=== PATIENT | female | born 1955 | race Caucasian/White ===

== ENCOUNTER 2017-03-12 16:54 | Inpatient (IN) | payer MEDICARE ==
--- NOTE | 2017-03-12 17:56 | ER Document Report ---
ED Medical Screen (RME) - General Chief Complaint: Shortness Of Breath Stated Complaint: DIFFICULTY BREATHING Time Seen by Provider: 03/12/17 17:19 Mode of Arrival: Ambulatory Information source: Patient TRAVEL OUTSIDE OF THE [place] IN LAST 30 DAYS: No - HPI Patient complains to provider of: Chest pain, shortness of breath Onset: Last week Notes: 03/12/17 17:54 Patient is a 61-year-old female with a history of lupus, as well as asthma, who presents to the emergency room for complaints of one-week history of chest heaviness with shortness of breath that has been worsening, she has been seen by her primary care provider and provided with breathing treatments, with no improvement of symptoms, she does her recently suddenly a few weeks ago - Related Data Allergies/Adverse Reactions: No Known Allergies Allergy (Unverified 03/12/17 17:11) Past Medical History Renal/ Medical History: Denies: Hx Peritoneal Dialysis Surgical Hx: Negative - Immunizations Hx Diphtheria, Pertussis, Tetanus Vaccination: Yes Physical Exam - Vital signs Vitals: Temp Pulse Resp BP Pulse Ox 98.0 F 106 H 22 H 145/99 H 98 03/12/17 17:11 03/12/17 17:11 03/12/17 17:11 03/12/17 17:11 03/12/17 17:11 Course - Vital Signs Vital signs: Temp Pulse Resp BP Pulse Ox 98.0 F 106 H 22 H 145/99 H 98 03/12/17 17:11 03/12/17 17:11 03/12/17 17:11 03/12/17 17:11 03/12/17 17:11
[2017-03-12] MEDS ORDERED: ONDANSETRON 4 MG TAB.RAPDIS SL ONE (18:00)
[2017-03-12] MEDS ORDERED: ASPIRIN 81 MG TABLET, CHEWABLE PO ONE (18:00)
[2017-03-12 18:34] LABS: HEMATOCRIT 37.8 % (36.0-47.0); HEMOGLOBIN 12.7 g/dL (12.0-15.5); HGB HCT DIFFERENCE 0.3; MEAN CORPUSCULAR HEMOGLOBIN 30.5 pg (27.0-33.4); MEAN CORPUSCULAR HGB CONC 33.7 g/dL (32.0-36.0); MEAN CORPUSCULAR VOLUME 91 fl (80-97); RED BLOOD COUNT 4.18 10^6/uL (3.72-5.28); RED CELL DISTRIBUTION WIDTH 12.9 % (11.5-14.0); WHITE BLOOD COUNT 21.3 10^3/uL (4.0-10.5)
[2017-03-12 18:45] LABS: APPEARANCE,URINE SLIGHTLY-CLOUDY; BILIRUBIN,URINE NEGATIVE (NEGATIVE); GLUCOSE, URINE NEGATIVE (NEGATIVE); KETONES,URINE TRACE mg/dL (NEGATIVE); LEUKOCYTE ESTERASE,URINE NEGATIVE (NEGATIVE); NITRITE,URINE NEGATIVE (NEGATIVE); PROTEIN,URINE NEGATIVE (NEGATIVE); URINE SPECIFIC GRAVITY 1.025; UROBILINOGEN,URINE NEGATIVE mg/dL (<2.0)
--- NOTE | 2017-03-12 18:47 | RADIOLOGY REPORT (SQ) ---
EXAM DESCRIPTION: CHEST PA/LAT COMPLETED DATE/TIME: 03/12/2017 6:36 pm REASON FOR STUDY: cp COMPARISON: 08/22/2012 EXAM PARAMETERS: NUMBER OF VIEWS: two views TECHNIQUE: Digital Frontal and Lateral radiographic views of the chest acquired. RADIATION DOSE: NA LIMITATIONS: none FINDINGS: LUNGS AND PLEURA: No opacities, masses or pneumothorax. No pleural effusion. MEDIASTINUM AND HILAR STRUCTURES: No masses or contour abnormalities. HEART AND VASCULAR STRUCTURES: Heart normal size. No evidence for failure. BONES: No acute findings. HARDWARE: None in the chest. OTHER: No other significant finding. IMPRESSION: NO SIGNIFICANT RADIOGRAPHIC FINDING IN THE CHEST. TECHNICAL DOCUMENTATION: JOB ID: [id number] [employer]- All Rights Reserved
[2017-03-12 18:54] LABS: ALANINE AMINOTRANSFERASE 22 U/L (9-52); ALBUMIN 4.3 g/dL (3.5-5.0); ALKALINE PHOSPHATASE 65 U/L (38-126); ANION GAP 12 (5-19); ASPARTATE AMINO TRANSFERASE 17 U/L (14-36); BILIRUBIN,DIRECT 0.2 mg/dL (0.0-0.4); BILIRUBIN,TOTAL 0.4 mg/dL (0.2-1.3); BLOOD UREA NITROGEN 17 mg/dL (7-20); CALCIUM 9.6 mg/dL (8.4-10.2); CARBON DIOXIDE 24 mmol/L (22-30); CHLORIDE 101 mmol/L (98-107); CREATINE KINASE 60 U/L (30-135); CREATININE RESULT 0.71 mg/dL (0.52-1.25); GLUCOSE 98 mg/dL (75-110); POTASSIUM 4.6 mmol/L (3.6-5.0); TOTAL PROTEIN 7.3 g/dL (6.3-8.2)
[2017-03-12 19:00] LABS: BAND NEUTROPHILS % (MANUAL) 1 % (3-5); BASOPHILS % (MANUAL) 0 % (0-2); EOSINOPHILS % (MANUAL) 0 % (0-6); LYMPHOCYTES % (MANUAL) 2 % (13-45); TOTAL CELLS COUNTED 100
[2017-03-12 19:01] LABS: HYPOCHROMASIA SLIGHT; PLATELET CLUMPS PRESENT
[2017-03-12] MEDS ORDERED: ALBUTEROL SULFATE 0.083% NEB 2.5 MG/3 ML AMPUL NEB ONE ×2 (20:01→23:39)
--- NOTE | 2017-03-12 22:03 | ER Document Report ---
ED Respiratory Problem - General Mode of Arrival: Ambulatory TRAVEL OUTSIDE OF THE [place] IN LAST 30 DAYS: No - HPI Patient complains to provider of: Short of breath Onset: Other - Refer to HPI Notes <FUENTES FATIMA - Last Filed: 03/12/17 22:09> <AAKASH SEYMOUR - Last Filed: 03/12/17 23:47> <RONA ARANA - Last Filed: 03/13/17 01:43> - General Chief Complaint: Shortness Of Breath Stated Complaint: DIFFICULTY BREATHING Time Seen by Provider: 03/12/17 17:19 Notes: Patient is a 61 year old female presenting to the ED for shortness of breath and chest heaviness x1 week. Patient states she has been seen by her primary care physician for such and has been given breathing treatments with no much improvement. Patient states that she has been scared because she cannot catch her breath. Patient also complains of cough and a hoarse voice. Patient denies any nausea. Patient was given some Xanax which helped her sleep last night but she does not usually take any medications like that. Patient states that she was given Ventolin instead of Proventyl inhalers due to an insurance problem. Patinet states this is when her symptoms got worse and she did not realize that these inhalers are actually the same drug. Patient did loose her recently and has been stressed. Patient has a history of asthma, systemic lupus , multiple knee replacement and a hysterectomy. (FUENTES FATIMA) - Related Data Allergies/Adverse Reactions: No Known Allergies Allergy (Unverified 03/12/17 17:11) Past Medical History - General Information source: Patient - Social History Smoking Status: Former Smoker Cigarette use (# per day): No Chew tobacco use (# tins/day): No Smoking Education Provided: No Frequency of alcohol use: None Drug Abuse: None Family History: None Patient has suicidal ideation: No Patient has homicidal ideation: No Pulmonary Medical History: Reports: Hx Asthma Endocrine Medical History: Reports: Other - lupus Surgical Hx: Negative - Immunizations Hx Diphtheria, Pertussis, Tetanus Vaccination: Yes <FUENTES FATIMA - Last Filed: 03/12/17 22:09> Review of Systems - Review of Systems Constitutional: No symptoms reported EENT: No symptoms reported Cardiovascular: See HPI, Chest pain Respiratory: See HPI, Cough, Short of breath Gastrointestinal: No symptoms reported Genitourinary: No symptoms reported Female Genitourinary: No symptoms reported Musculoskeletal: No symptoms reported Skin: No symptoms reported Hematologic/Lymphatic: No symptoms reported Neurological/Psychological: See HPI, Anxiety -: Yes All other systems reviewed and negative <FUENTES FATIMA - Last Filed: 03/12/17 22:09> Physical Exam - Vital signs Interpretation: Hypertensive, Tachypneic <FUENTES FATIMA - Last Filed: 03/12/17 22:09> <AAKASH SEYMOUR - Last Filed: 03/12/17 23:47> <RONA ARANA - Last Filed: 03/13/17 01:43> - Vital signs Vitals: Temp Pulse Resp BP Pulse Ox 98.0 F 106 H 22 H 145/99 H 98 03/12/17 17:11 03/12/17 17:11 03/12/17 17:11 03/12/17 17:11 03/12/17 17:11 - Notes Notes: GENERAL: Alert, interacts well, pleasant. No acute distress. HEAD: Normocephalic, atraumatic. EYES: Appear normal. Pupils equal, round, and reactive to light. ENT: Dry mucus membranes, tongue midline. Nasal cannula in place. Slight erythema to the soft palate area of the oropharynx. NECK: Full range of motion. Supple. Trachea midline. LUNGS: Slightly tachypneic. Clear to auscultation bilaterally, no wheezes, rales , or rhonchi. No respiratory distress. HEART: Regular rate and rhythm. No murmurs, gallops, or rubs. ABDOMEN: Soft, non-tender. Non-distended. Normal bowel sounds. EXTREMITIES: Moves all 4 extremities spontaneously. Normal strength. No edema. NEUROLOGICAL: Alert and oriented x3. Normal speech with hoarse voice. No focal neurological deficits. GSC 15. PSYCH: Anxious. SKIN: Warm, dry, normal turgor. No rashes or lesions noted. (FUENTES FATIMA) Course - Laboratory Result Diagrams: 03/12/17 18:02 03/12/17 18:02 <FUENTES FATIMA - Last Filed: 03/12/17 22:09> - Laboratory Result Diagrams: 03/12/17 18:02 03/12/17 18:02 - Diagnostic Test Radiology reviewed: Image reviewed, Reports reviewed - Chest x-ray is unremarkable <LIONAAKASH - Last Filed: 03/12/17 23:47> - Laboratory Result Diagrams: 03/12/17 18:02 03/12/17 18:02 <RONA ARANA - Last Filed: 03/13/17 01:43> - Re-evaluation Re-evalutation: 03/12/17 23:19 The patient was given Ativan 0.5 mg IV 30 minutes ago. The oxygen was turned off about 5 minutes ago. The patient is sleeping soundly, her pulse ox ranges between 91 and 95% on room air while she is asleep. Her pulse ox was 95% on room air when she first presented breathing rapidly at triage. 03/12/17 23:27 The patient was awakened recheck, she states that she is breathing much better and feels better after getting some rest. At this time she does have a frequent , nonproductive congested cough, probably due to accumulation of mucus while she was resting so peacefully. 03/12/17 23:47 The patient reports that she is on chronic pain management taking oxycodone 4 times daily. (AAKASH SEYMOUR) 03/13/17 01:41 Patient was seen by Dr. Adrian and he had her for discharge. The nurse went to discharge the patient and the patient did not look well and O2 saturation was 82 to 84% room air. I therefore reevaluate patient. She has rhonchorous breath sounds. She has some tachypnea. Her heart rate is in the 120s. With 2 L of oxygen she is at 90%. I increased her oxygen to 3 L. She is now 94%. I have ordered her magnesium IV. She is a received Solu-Medrol. She does have a leukocytosis of 21,000. Patient denies history of chronic steroid use despite history of lupus. Her d-dimer is negative. She does have a history of asthma. She does agree to admission. I did speak with Dr. Gaines who agrees to admit the patient. We will place her on antibiotics due to the high white blood cell count. She will be admitted due to worsening hypoxemia and tachycardia the presence of wheezing and rhonchorous breath sounds. Dictation of this chart was performed using voice recognition software; therefore, there may be some unintended grammatical errors. (RONA ARANA) - Vital Signs Vital signs: Temp Pulse Resp BP Pulse Ox 98.0 F 82 27 H 135/75 H 89 L 03/12/17 17:11 03/12/17 21:32 03/13/17 00:31 03/13/17 00:31 03/13/17 00:31 - Laboratory Laboratory results interpreted by me: 03/12/17 03/12/17 18:02 18:02 WBC 21.3 H Seg Neuts % (Manual) 93 H Band Neutrophils % 1 L Lymphocytes % (Manual) 2 L Abs Neuts (Manual) 20.0 H Urine Ketones TRACE H Discharge <FUENTES FATIMA - Last Filed: 03/12/17 22:09> <AAKASH SEYMOUR - Last Filed: 03/12/17 23:47> - Discharge Unit Admitted: [facility] <RONA ARANA - Last Filed: 03/13/17 01:43> - Discharge Clinical Impression: Laryngitis, Anxiety as acute reaction to exceptional stress Asthmatic bronchitis Qualifiers: Asthma severity: unspecified severity Asthma complication type: with acute exacerbation Qualified Code(s): J45.901 - Unspecified asthma with (acute) exacerbation Upper respiratory tract infection Qualifiers: URI type: unspecified URI Qualified Code(s): J06.9 - Acute upper respiratory infection, unspecified Condition: Stable Disposition: ADMITTED INPATIENT Additional Instructions: Laryngitis: You have laryngitis. This is an inflammation of the vocal cords which leads to inability to speak normally. Any irritation to the airway can cause laryngitis. Causes include virus infection, smoke inhalation, allergy, or even trauma due to excessive talking or shouting. Rest your voice. Any vibration of the vocal cords increases and prolongs the swelling. Humidity is helpful, especially cool mist. Avoid dust, chemical fumes, and smoke. Avoid decongestants and antihistamines -- these will make you worse. You can expect to recover completely in a few days. See the physician if new symptoms develop, such as high fever, productive cough, shortness of breath, or if you do not improve within a few days. Bronchitis with Bronchospasm (Wheezing): You have bronchitis with bronchospasm (wheezing). Sometimes people develop wheezing with a chest cold. This occurs either because of an underlying tendency toward asthma or because the virus itself irritates the bronchial tubes. This irritation causes cough, shortness of breath, and wheezing. Emergency treatment of bronchospasm may include adrenaline shots or bronchodilator aerosol. You may feel lightheaded and have a rapid pulse for an hour or two. Rest and get plenty of fluids. At home, we'll treat you with a bronchodilator inhaler. Corticosteroids may be required for some patients. Until you recover, avoid chemical fumes, dusts, pollens, and exercising in very cold or dry air. If you smoke, stop now! Most cases of bronchitis get better without antibiotics. We prescribe antibiotics when we believe bacteria are damaging your airways, or if there's high risk the bronchitis will worsen into pneumonia. Increase your fluid intake. A cool mist humidifier may make your lungs more comfortable. An expectorant (cough medicine that loosens phlegm) can help. Repeated episodes of bronchitis and bronchospasm may result in lung damage -- for example, chronic bronchitis, recurrent pneumonias, or emphysema. If you develop a fever, increased wheezing, chest pain, or severe shortness of breath, you should contact the doctor immediately. Anxiety: The physician feels that some of your health problems are being caused by anxiety. Anxiety affects your health in many ways. Anxiety alone can cause palpitations, sweats, chest pains, abdominal pains, shortness of breath, and headaches. It contributes to ulcer disease, high blood pressure, irritable bowel syndrome, and has been shown to cause flare-ups of many other diseases. Anxiety is not a simple disorder to treat. If the anxiety is due to recent life stresses, you may simply need time to "work through" the changes. If the anxiety is due to an underlying unhappiness with yourself or due to psychiatric disturbance, professional help will be needed. Your physician can refer you for further help if needed. Anti-anxiety medication is occasionally given if the stress is acute or if you are having trouble sleeping. Chronic or frequent use of these medications is not a good idea because the body becomes reliant on it, preventing you from dealing with life's normal stresses. TAKE THE PREDNISONE PRESCRIBED. DRINK PLENTY OF FLUIDS. REST. TRY ROBITUSSIN-DM FOR COUGH CONTROL. FOLLOW UP WITH YOUR DOCTOR IF NOT IMPROVING. RETURN TO THE EMERGENCY ROOM IF ANY NEW OR WORSENING SYMPTOMS. Prescriptions: Prednisone [Deltasone 10 mg Tablet] 10 mg PO ASDIR PRN #21 tablet PRN Reason: Scribe Attestation: 03/12/17 22:39 I personally performed the services described in the documentation, reviewed and edited the documentation which was dictated to the scribe in my presence, and it accurately records my words and actions. (AAKASH SEYMOUR) Scribe Documentation - Scribe Written by Lauri:: Lauri Kim 03/12/2017 22:03 acting as scribe for :: Lion <FUENTES FATIMA - Last Filed: 03/12/17 22:09>
[2017-03-12] MEDS ORDERED: METHYLPREDNISOLONE INJ 125 MG/2 ML SDV IV ONE (22:09)
[2017-03-12] MEDS ORDERED: LORAZEPAM INJ 2 MG/1 ML VIAL IV ONE (22:10)
[2017-03-12] MEDS ORDERED: NORMAL SALINE 1000 ML 1,000 ML IV ONE (22:13)
[2017-03-12] MEDS ORDERED: HYDROCODONE/ACETAMINOPHEN 5-325 MG 6 TAB/DSPK PO PRN (23:30)
[2017-03-12] MEDS ORDERED: PREDNISONE 20 MG TABLET PO ONE (23:30)
[2017-03-12] MEDS ORDERED: HYDROCODONE/ACETAMINOPHEN 5-325 MG TABLET PO ONE (23:36)
[2017-03-12] MEDS ORDERED: LIDOCAINE 1% INJ-PF (10 MG/ML) 30 ML SDV NEB ONE (23:39)
[2017-03-13] MEDS: MAGNESIUM SULFATE/D5W 100 ML IV SCH ×2 (01:05→01:58)
[2017-03-13] MEDS ORDERED: CEFTRIAXONE INJ 1000 MG VIAL IV ONE (01:40)
[2017-03-13] MEDS ORDERED: AZITHROMYCIN INJ 500 MG VIAL IV ONE (01:41)
[2017-03-13] MEDS ORDERED: CEFEPIME 2 GM/D5W RTU 50 ML IV SCH (02:15)
[2017-03-13] MEDS ORDERED: CEFEPIME 2 GM/D5W RTU 2 GM/50 ML RTUPB IV ONE ×2 (02:30→11:00)
[2017-03-13 02:32] LABS: ARTERIAL BLOOD BASE EXCESS -2.8 mmol/L; ARTERIAL BLOOD O2 SATURATION 91.9 % (94-98)
[2017-03-13] MEDS ORDERED: NORMAL SALINE 1000 ML 1,000 ML IV PRN (02:48)
[2017-03-13] MEDS ORDERED: INSULIN LISPRO 100 UNIT/ML 3 ML VIAL SUBCUT PRN (02:49)
[2017-03-13] MEDS ORDERED: DEXTROSE 40% GEL 15 GM TUBE PO PRN ×2 (02:49)
[2017-03-13] MEDS ORDERED: GLUCAGON,HUMAN RECOMB 1 MG INJ IM PRN (02:49)
[2017-03-13] MEDS ORDERED: DEXTROSE 50%-WATER 25 GM/50 ML DISP.SYRIN IV PRN ×2 (02:49)
[2017-03-13] MEDS ORDERED: ALBUTEROL SULFATE 0.083% NEB 2.5 MG/3 ML AMPUL NEB PRN (03:17)
[2017-03-13] MEDS ORDERED: ACETAMINOPHEN 325 MG TABLET PO PRN (03:17)
[2017-03-13] MEDS ORDERED: GUAIFENESIN SYRP 200 MG/10 ML UDC PO PRN (03:17)
[2017-03-13 03:32] LABS: ADD ON TESTING BLD IN LAB ACKNOWLEDGE
[2017-03-13 03:43] LABS: MAGNESIUM 2.6 mg/dL (1.6-2.3)
[2017-03-13] MEDS ORDERED: PROMETHAZINE HCL 25 MG TABLET PO PRN (03:45)
[2017-03-13] MEDS: NORMAL SALINE 1000 ML 1,000 ML IV PRN ×2 (04:10→16:38)
--- NOTE | 2017-03-13 04:11 | PDOC H&P ---
History of Present Illness Admission Date/PCP: 03/13/17 02:01 Primary care provider uncertain Patient complains of: Difficulty breathing History of Present Illness: DAJA DIETRICH is a 61 year old female with underlying asthma, systemic lupus, not on medication for same, prominent reflux, mild anxiety and depression without suicidal or homicidal ideation, history of nephrolithiasis, and history of myocardial infarction, who presents to the emergency room for evaluation of a one-week history of slowly progressive shortness of breath and occasional chest heaviness when her shortness of breath is at its worst. Patient has been discussed with emergency room physician who evaluated the patient. He had accepted the patient from the previous emergency room doctor. Tentative plans were to send the patient home, but when the time for evaluation arrived, O2 saturations were in the low 80 percentile on room air and patient was noted to have rhonchorous breath sounds and to be in some respiratory distress. She had questionable chills but no fever. No nausea vomiting, diarrhea or dysuria, or abdominal pain. Has never been intubated for respiratory difficulty. This is her first hospitalization for asthma exacerbation since childhood. Her first ER visit for asthma problems in quite some time. No underlying COPD or sleep apnea. Was treated with a course of Cipro 2 weeks ago for urinary tract infection. Dictation via voice recognition software. Laboratory results are listed in [facility] and are reviewed. X-ray summary results are listed below, with full report(s) reviewed. . Social history/personal habits: ; recently . Lives alone. 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 No tobacco use since 2001. No alcohol or illicit drug use. No known drug allergies. Home medications initially autopopulated into [facility] may not accurately reflect patient's true medications, dosages, and/or frequencies. psychiatric technician to reconcile medications. Unfortunately, patient not certain of all medications/dosages/frequencies. REVIEW OF SYSTEMS: Constitutional: See history and present illness. Eyes: Wears glasses ENT: No swallowing problems or complaints. Denies hearing loss. Pulmonary: See history and present illness. Cardiovascular: See history and present illness. Gastrointestinal: No current complaints, including nausea or vomiting. Skin: No current complaints, including rashes. Hematologic: Denies easy bruising. Neurologic: No current complaints, including numbness or tingling. Musculoskeletal: Joint pain from her lupus. Psychiatric: Mild anxiety and depression. Denies suicidal or homicidal ideation. Endocrine: No current complaints, including polyuria. Genitourinary: No current complaints, including dysuria. PHYSICAL EXAMINATION: 5 feet 6 inches tall. 67.4 kg. BMI 24 kg/m. Blood pressure 137/78. Pulse 117 and regular. 93% saturation on 2 L oxygen per nasal cannula. Respirations are 25 and unlabored. Temperature 98.0. Well-nourished well-developed female appearing approximately her stated age. Pleasant awake alert and cooperative. Appears not to feel very well, and somewhat fatigued. Female emergency room nurse David is present. Skin is warm and dry. No grossly obvious evidence of rash in areas of skin examined. No subcutaneous nodules palpated. ENT: Hearing grossly normal to normal conversation. Tongue midline on protrusion pink and slightly tacky. Eyes: No scleral icterus. Pupils equal and reactive to light at 4 mm. Ricardo conjunctivae. Neck is supple and nontender to gentle active range of motion and palpation. Midline trachea. No palpable thyroid nodule mass enlargement or tenderness. Lymphatic: No palpable cervical or clavicular nodes. Neck and lymphatic exams limited by patient body habitus. Psychiatric: Reasonable insight into acute and chronic medical issues. Oriented to time location and why here. Lungs: Auscultation reveals equal breath sounds bilaterally. No use of accessory respiratory muscles. Faintly coarse breath sounds bilaterally, with mild brief expiratory wheezing Cardiovascular: Heart regular rate and rhythm, without gallop murmur or rub. No carotid or abdominal aortic bruits. No ankle or pedal edema. Faintly palpable dorsalis pedis pulses. Abdomen:soft slightly distended nontender with positive bowel sounds. Unable to adequately evaluate abdomen for masses or organomegaly due to distention. Extremities: Feet are warm and dry. No calf tenderness to compression. No grossly obvious visual evidence of calf swelling. Gentle manipulation of lower extremities fails to reveal any obvious evidence of injury or instability to knees hips or ankles. Neurologic: Moves upper extremities grossly normally. Patellar reflexes absent. Absent Babinski. Light touch is intact at feet. Dorsiflexion and plantarflexion of feet 5 / 5 and symmetric. Past Medical History Cardiac Medical History: Reports: Coronary Artery Disease, Myocardial Infarction , Hypertension Denies: Atrial Fibrillation, Congestive Heart Failure, DVT, Hyperlipidema, Pulmonary Embolism Pulmonary Medical History: Reports: Asthma Denies: Chronic Obstructive Pulmonary Disease (COPD), Sleep Apnea EENT Medical History: Reports: Eyes - Glasses Denies: Ears, Throat Neurological Medical History: Denies: Hemorrhagic CVA, Ischemic CVA, Seizures Endocrine Medical History: Denies: Diabetes Mellitus Type 1, Diabetes Mellitus Type 2, Hyperthyroidism, Hypothyroidism GI Medical History: Reports: Gastroesophageal Reflux Disease Denies: Cirrhosis, Hepatitis, Peptic Ulcer Disease Musculoskeltal Medical History: Reports: Other - Systemic lupus Skin Medical History: Reports: None Psychiatric Medical History: Reports: Depression, General Anxiety Disorder Denies: Alcohol Dependency, Substance Abuse, Tobacco Dependency Hematology: Reports: Anemia, Other - Easy bruising Infectious Medical History: Denies: Hepatitis B, Hepatitis C Past Surgical History Past Surgical History: Reports: Appendectomy, Hysterectomy, Orthopedic Surgery - Knee surgery 5., Other - Breast reconstruction after lumpectomy for benign disease Social History Information Source: Patient, Emergency Med Personnel, [facility] Records Lives with: Alone Smoking Status: Former Smoker Frequency of Alcohol Use: None Drugs: None - Advance Directive Resuscitation Status: Full Code Surrogate healthcare decision maker:: Her niece Gina Dietrich Family History Family History: None Parental Family History Reviewed: Yes - Father of complications of diabetes. Mother alive, uncertain health Children Family History Reviewed: Yes - Son with back problems. Sibling(s) Family History Reviewed.: Yes - Healthy Medication/Allergy Home Medications: Alprazolam [Xanax 0.5 mg Tablet] 0.5 mg PO TIDP PRN 03/13/17 Ammonium Lactate [Lac-Hydrin 12% Lotion 225Gm/Bottle] 1 applic TP QHS 03/13/17 Diazepam [Valium 5 mg Tablet] 2.5 mg PO HSP PRN 03/13/17 Fluticasone Propionate [Flovent Hfa 110 Mcg Inhalation Aerosol 12 gm] 1 puff IH Q12 03/13/17 Metoprolol Succinate [Toprol Xl 50 mg Tab.sr] 50 mg PO DAILY 03/13/17 Pantoprazole Sodium [Protonix] 40 mg PO BIDBS 03/13/17 Benzonatate [Tessalon Perles 100 mg Capsule] 100 mg PO Q8HP PRN #10 capsule 08/30 Doxycycline Hyclate 100 mg PO BID #10 capsule 03/14/17 Montelukast Sodium [Singulair 10 mg Tablet] 10 mg PO QHS #30 tablet 08/01/17 Prednisone [Deltasone 10 mg Tablet] 10 mg PO ASDIR PRN #21 tablet 03/14/17 Allergies/Adverse Reactions: No Known Allergies Allergy (Unverified 03/12/17 17:11) Physical Exam Vital Signs: Temp Pulse Resp BP Pulse Ox 98.0 F 82 27 H 135/75 H 89 L 03/12/17 17:11 03/12/17 21:32 03/13/17 00:31 03/13/17 00:31 03/13/17 00:31 Results Laboratory Results: 03/13/17 03/13/17 02:25 02:55 Carbonic Acid 1.04 L HCO3/H2CO3 Ratio 20:1 ABG pH 7.41 ABG pCO2 34.7 L ABG pO2 61.3 L ABG HCO3 21.3 ABG O2 Saturation 91.9 L ABG Base Excess -2.8 FiO2 3 LITERS Magnesium 2.6 H 03/13/17 02:55 Troponin I < 0.012 Impressions: Chest X-Ray 03/12/17 18:00 IMPRESSION: NO SIGNIFICANT RADIOGRAPHIC FINDING IN THE CHEST. Assessment & Plan - Diagnosis (1) Asthma exacerbation Is this a current diagnosis for this admission?: YesPlan: Patient will be admitted under asthma exacerbation protocol. Incentive spirometry twice a day. Scheduled DuoNeb's. As needed albuterol nebs. Solu-Medrol. Prevacid for gastritis prophylaxis With questionable chills, leukocytosis, and underlying systemic lupus, antibiotics will be added; cefepime and intravenous Zithromax.. I strongly encouraged patient to notify staff should patient feel that breathing is worsening. Patient is a full code. I have strongly encouraged patient not to get out of bed without notifying staff , to avoid a fall with injury. Knee high SCDs for DVT prophylaxis, along with subcutaneous Lovenox. Impression and plans were discussed with patient who concurs. Time spent in evaluation and management of patient: 71 minutes. (2) Leukocytosis Qualifiers: Leukocytosis type: unspecified Qualified Code(s): D72.829 - Elevated white blood cell count, unspecified Is this a current diagnosis for this admission?: Yes (3) SLE (systemic lupus erythematosus) Qualifiers: Systemic lupus erythematosus type: unspecified Systemic lupus erythematosus organ involvement: other Qualified Code(s): M32.19 - Other organ or system involvement in systemic lupus erythematosus Is this a current diagnosis for this admission?: YesPlan: No evidence of flare of same. (4) CAD (coronary artery disease) Qualifiers: Coronary Disease-Associated Artery/Lesion type: [place] artery [place] vs. transplanted heart: [place] heart Associated angina: without angina Qualified Code(s): I25.10 - Atherosclerotic heart disease of [place] coronary artery without angina pectoris Is this a current diagnosis for this admission?: YesPlan: No evidence of acute exacerbation of same. Serial troponins. Resume home medications as appropriate once these have been determined and reviewed. (5) HTN (hypertension) Qualifiers: Hypertension type: essential hypertension Qualified Code(s): I10 - Essential (primary) hypertension Is this a current diagnosis for this admission?: YesPlan: Resume home medications as appropriate once these have been determined and reviewed. - Time Time Spent: Greater than 70 Minutes Anticipated discharge: Home Within: within 72 hours - Inpatient Certification Based on my medical assessment, after consideration of the patient's comorbidities, presenting symptoms, or acuity I expect that the services needed warrant INPATIENT care.: Yes I certify that my determination is in accordance with my understanding of Medicare's requirements for reasonable and necessary INPATIENT services [42 CFR 412.3e].: Yes Medical Necessity: Need Close Monitoring Due to Risk of Patient Decompensation, Need For IV Fluids, Need For Continuous Telemetry Monitoring, Need for Nebulizer Therapy and Monitoring of Response, Need for IV Antibiotics, Risk of Complication if Not Cared For in Hospital Post Hospital Care: D/C or Transfer Summary
[2017-03-13] MEDS ORDERED: LANSOPRAZOLE 30 MG TAB.RAP.DR PO SCH (06:00)
[2017-03-13] MEDS: METHYLPREDNISOLONE INJ 40 MG/1 ML SDV IV SCH ×2 (06:44→14:11)
[2017-03-13 06:51] LABS: VENOUS BLOOD HCO3 21.1 mmol/L (20-32); VENOUS BLOOD PH 7.35 (7.30-7.42)
[2017-03-13 06:57] LABS: HEMATOCRIT 35.1 % (36.0-47.0); HGB HCT DIFFERENCE 0.9; MEAN CORPUSCULAR HGB CONC 34.2 g/dL (32.0-36.0); MEAN CORPUSCULAR VOLUME 91 fl (80-97); RED BLOOD COUNT 3.87 10^6/uL (3.72-5.28); WHITE BLOOD COUNT 18.9 10^3/uL (4.0-10.5)
[2017-03-13 07:08] LABS: ANION GAP 15 (5-19); BLOOD UREA NITROGEN 11 mg/dL (7-20); CARBON DIOXIDE 18 mmol/L (22-30); CHLORIDE 105 mmol/L (98-107); CREATININE RESULT 0.62 mg/dL (0.52-1.25); GLUCOSE 197 mg/dL (75-110); POTASSIUM 4.3 mmol/L (3.6-5.0); SODIUM 138.2 mmol/L (137-145)
[2017-03-13 07:31] LABS: BASOPHILS % (MANUAL) 0 % (0-2); EOSINOPHILS % (MANUAL) 0 % (0-6); LYMPHOCYTES % (MANUAL) 5 % (13-45); TOTAL CELLS COUNTED 100
[2017-03-13 07:32] LABS: ANISOCYTOSIS SLIGHT
[2017-03-13] MEDS: IPRATROPIUM/ALBUTEROL 0.5-2.5 MG/3 ML AMPUL NEB SCH ×3 (09:00→19:51)
--- NOTE | 2017-03-13 09:33 | Progress Note ---
Provider Note Provider Note: RAJNI FARNSWORTH Search Criteria: Last Name 'rajni' and First Name 'devonte' and = ' and Request Period = 09/14/16' to 03/13/17' - 1 out of 1 Recipients Selected. Fill Date Product, Str, Form Qty Days Pt ID Prescriber Written RX# N/R* Pharm MED+ ------ ---- --------- --- ------- ----- --------- ------ 02/24/2017 OXYCODONE-ACETAMINOPHEN 10-325 120.00 30 [id number] 2016 [id number] N [id number] 60.0 02/24/2017 ALPRAZOLAM 0.5 MG TABLET 90.00 30 [id number] 02/24/2017 [id number] N [id number] 00.0 01/28/2017 OXYCODONE-ACETAMINOPHEN 10-325 120.00 30 [id number] 2016 [id number] N [id number] 60.0 01/25/2017 DIAZEPAM 5 MG TABLET 30.00 30 [id number] 12/29/2016 [id number] N [id number] 00.0 12/29/2016 OXYCODONE-ACETAMINOPHEN 10-325 120.00 30 [id number] 2016 [id number] N [id number] 60.0 11/24/2016 OXYCODONE-ACETAMINOPHEN 10-325 120.00 30 [id number] 2016 [id number] N [id number] 60.0 11/24/2016 DIAZEPAM 5 MG TABLET 30.00 30 [id number] 11/24/2016 [id number] N [id number] 00.0 10/27/2016 OXYCODONE-ACETAMINOPHEN 10-325 120.00 30 [id number] 2016 [id number] N [id number] 60.0 09/29/2016 OXYCODONE-ACETAMINOPHEN 10-325 120.00 30 [id number] 2016 [id number] N [id number] 60.0 [id number] ALEN MEIER MD; [facility], [address] [place] [address] Pharmacies that dispensed prescriptions listed [id number] ANTHON[facility] LIMA; [address] [place] [address], Patients that match search criteria
[2017-03-13] MEDS ORDERED: ENOXAPARIN SODIUM INJ 40 MG/0.4 ML DISP.SYRIN SUBCUT SCH (10:00)
[2017-03-13] MEDS ORDERED: CEFEPIME 2 GM/D5W RTU 2 GM/50 ML RTUPB IV SCH (10:00)
--- NOTE | 2017-03-13 10:08 | PROGRESS NOTE E ---
Progress Note NAME: DAJA DIETRICH : 1955 AGE: 61Y DATE: 03/13/2017 ROOM: 329 SUBJECTIVE: The patient is currently sitting up in bed. The patient is quite frustrated in that she needs her own medications restarted. The patient denies any nausea, vomiting, diarrhea. No dizziness, chest pain. She admits to shortness of breath. The patient is having difficulty fully complete sentences at this time, but states that her breathing is a little better than when she came in. The patient has had no chest pain and does not voice any other concerns at this time. REVIEW OF SYSTEMS: Rest of review of systems negative. MEDICATIONS: Medications have been reviewed. OBJECTIVE: GENERAL: The patient is a 61-year-old female who is awake, alert, and oriented to person, place, time, and situation. She is verbal, conversational, ambulatory, does not appear to be in any acute distress. VITAL SIGNS: Temperature is 97.6, pulse 95, respirations 20, blood pressure is 122/69, oxygen saturation 96% on 2 L nasal cannula. SKIN: Warm and dry. No rash. Not diaphoretic. HEENT: Pupils equal, round, and reactive to light and accommodation. Conjunctiva is pink. No JVP. CARDIOVASCULAR SYSTEM: Heart is regular. There is no murmur or rub. CHEST: Expiratory wheezes are noted throughout both lung guerrero, symmetrical, unlabored. ABDOMEN: Soft, nontender, nondistended. BACK: No CVA tenderness or sacral edema. EXTREMITIES: No clubbing, cyanosis, edema. PSYCHIATRIC: Appropriate affect, pleasant mood. DIAGNOSTICS: Lab values are as follows: Hematology obtained on 03/13/2017: WBCs are 18.9, hemoglobin is 12.0, hematocrit is 35.1, platelet count is 359,000. Chemistry obtained on 03/13/2017: Sodium is 138, potassium 4.3, chloride is 105, carbon dioxide 18, BUN 11, creatinine is 0.62, glucose 197, calcium is 9.0. IMPRESSION AND PLAN: 1. ACUTE ASTHMA EXACERBATION. Will continue the patient's home inhalers once reconciled. Will continue steroids as well as nebulizers and follows. 2. ACUTE HYPOXEMIC RESPIRATORY FAILURE. The patient's tachypnea overall is improved. The patient is now oxygenating on 2 L and is tolerating this well. Will continue to follow. 3. OPIATE DEPENDENCY CONTINUOUS. Will continue the patient's home medications once reconcilable. 4. BENZODIAZEPINE DEPENDENCY, CONTINUOUS. There is such a risk of mortality associated with this and opiates. I discussed this with the patient as the patient does need to be weaned from this. 5. ESTROGEN USE AT AGE 61. This is also associated with risk. The patient would like to defer this to primary. 6. GASTROESOPHAGEAL REFLUX DISEASE. Will continue PPI therapy. 7. DVT PROPHYLAXIS. Will continue Lovenox. DISPOSITION: The patient is a FULL CODE. Pending patient's symptomatology and diagnostic findings, will re-evaluate in the a.m. Time spent on this followup including assessment, plan, physical examination, patient education, and review of previous records is 35 minutes. DICTATING PHYSICIAN: DIONE GANN NP [id number] PHY#: [id number] ID: [id number] JOB#: [id number] ACCT: [id number] cc: >
[2017-03-13] MEDS: CEFEPIME 2 GM/D5W RTU 2 GM/50 ML RTUPB IV SCH ×2 (10:42→21:28)
[2017-03-13] MEDS: GUAIFENESIN 600 MG TABLET.SA PO SCH ×2 (11:11→21:35)
[2017-03-13] MEDS ORDERED: DIAZEPAM 5 MG TABLET PO PRN (14:09)
[2017-03-13] MEDS ORDERED: OXYCODONE-ACETAMINOPHEN 5-325 MG TABLET PO PRN ×2 (14:09→14:59)
[2017-03-13] MEDS ORDERED: OXYCODONE HCL IR 5 MG TABLET PO PRN ×4 (14:23→14:59)
[2017-03-13] MEDS: LANSOPRAZOLE 30 MG TAB.RAP.DR PO SCH (16:41)
[2017-03-13] MEDS ORDERED: METOPROLOL SUCCINATE 50 MG TAB.SR.24H PO SCH (18:00)
[2017-03-13] MEDS: METHYLPREDNISOLONE INJ 125 MG/2 ML SDV IV SCH (21:51)
[2017-03-13] MEDS ORDERED: MONTELUKAST SODIUM 10 MG TABLET PO SCH (22:00)
[2017-03-13] MEDS ORDERED: AZITHROMYCIN 500 MG in DEXTROSE 5%-WATER 250 ML IV SCH (22:00)
[2017-03-13] MEDS ORDERED: FLUTICASONE PROPIONATE HFA 110 MCG/PUFF 12 GM MDI IH SCH (22:00)
[2017-03-14] MEDS: METHYLPREDNISOLONE INJ 125 MG/2 ML SDV IV SCH (05:41)
[2017-03-14] MEDS: LANSOPRAZOLE 30 MG TAB.RAP.DR PO SCH (07:59)
[2017-03-14] MEDS: IPRATROPIUM/ALBUTEROL 0.5-2.5 MG/3 ML AMPUL NEB SCH (08:02)
[2017-03-14] MEDS ORDERED: BENZONATATE 100 MG CAPSULE PO PRN (08:28)
[2017-03-14] MEDS ORDERED: ALPRAZOLAM 0.5 MG TABLET PO PRN (08:28)
--- NOTE | 2017-03-14 09:33 | DISCHARGE SUMMARY E ---
Discharge Summary NAME: DAJA DIETRICH : 1955 AGE: 61Y ADMITTED: 03/13/2017 DISCHARGED: 03/14/2017 CODE STATUS: FULL CODE. PRIMARY CARE PROVIDER: Dr. Juan Bowie. DISCHARGE DIAGNOSES: 1. Acute asthma exacerbation. 2. Acute hypoxemic respiratory failure. 3. Opiate dependency, continuous. 4. Benzodiazepines dependency, continuous. 5. Estrogen use at age 61. 6. Gastroesophageal reflux disease. DISCHARGE MEDICATIONS: 1. Prednisone 60 mg taper. 2. Singulair 10 mg p.o. every hour of sleep, 30 tablets with 0 refills. 3. Doxycycline 100 mg p.o. b.i.d., 10 capsules with 0 refills. 4. Tessalon Perles 100 mg p.o. q.8 h. p.r.n., 10 capsule with 0 refills. 5. Xanax 0.5 mg p.o. t.i.d. p.r.n. 6. Valium 2.5 mg p.o. every hour of sleep p.r.n. 7. Flovent HFA 1 puff inhalation q.12 h. 8. Toprol XL 50 mg p.o. daily. 9. Protonix 40 mg p.o. daily. DIET: As tolerated. ACTIVITY: As tolerated. PHYSICAL EXAMINATION: GENERAL: On examination, the patient is a well-developed, well-nourished 61-year-old female who is awake, alert and oriented to person, place, time and situation. She is verbal, conversational, anxious and does not appear to be in acute physical distress. VITAL SIGNS FOLLOWS: Temperature 98.0, pulse 86, respirations 18, blood pressure 149/79, oxygen saturation is 93% on room air. SKIN: Warm and dry. No rash, not diaphoretic. HEENT: Pupils are equal, round, and reactive to light and accommodation. Conjunctivae is pink. No JVP. CARDIOVASCULAR: Heart is regular. There is no murmur or rub. CHEST: Clear. Faint wheezes noted in upper lung guerrero, much improved in comparison to yesterday, symmetrical and unlabored. ABDOMEN: Soft. Nontender, nondistended. BACK: No CVA tenderness or sacral edema. EXTREMITIES: No clubbing, cyanosis or edema. PSYCHIATRIC: Appropriate affect. Pleasant mood. DIAGNOSTICS: Lab values are as follows: Hematology obtained on 03/13/2017: WBCs 18.9, hemoglobin 12.0, hematocrit 35.1, and platelet count is 359,000. Coagulation obtained on 03/12/2017: D-dimer is 0.34. Venous blood gas obtained on 03/13/2017: pH is 7.35, PCO2 is 39.0, bicarb is 21. Chemistry obtained on 03/13/2017: Sodium is 138, potassium 4.3, chloride 105, carbon dioxide 18, BUN 11, creatinine 0.62, glucose 107, calcium 9.0, magnesium 2.6, bilirubin is 0.4, AST 17, ALT 22, alkaline phosphatase 65, CK 60, CK-MB 1.55, troponin 0.012, total protein 7.3, albumin 4.3. Urinalysis obtained on 03/13/2017: Color yellow, appearance slightly cloudy, pH 5.0, specific gravity is 1.025, protein negative, glucose negative, ketones trace, occult blood negative, nitrite negative, bilirubin negative, urobilinogen negative, leukocyte esterase is negative, WBC 1, RBC 2, bacteria trace, epithelial squamous cells 2, mucus rare, ascorbic acid is negative. Microbiology: Blood culture obtained on 03/13/2017 revealed no growth. Sputum culture obtained on 03/13/2017 reveals no growth. Chest x-ray obtained on 03/12/2017 revealed no significant radiographic finding of the chest. HISTORY OF PRESENT ILLNESS: The patient is a 61-year-old female with a past medical history that is remarkable for asthma and benzodiazepine dependency with concurrent opiate dependency. The patient presented to the emergency department with a chief complaint of difficulty breathing. The patient presented to the emergency department for a 1-week history of slowly progressing shortness of breath and occasional chest heaviness and the patient came to the emergency department for evaluation. The patient was actually going to go home from the emergency department; however, her O2 sats dropped down to the 80 percentile range on room air and the patient was noted to have respiratory distress and, therefore, she was referred to the hospitalist for admission and management. HOSPITAL COURSE: The patient was admitted to [facility]. The patient's chest x-ray was unremarkable and the patient had minimal 02 demand. Upon initial assessment, the patient was found to have much difficulty with completing sentences; however, after nebulizers and steroids, the patient's wheezes improved tremendously. The patient was able to complete sentences and the patient did express a desire for discharge. I did discuss with the patient her current opiate use as well as benzodiazepine use. The patient stated that this is managed outpatient and would like to have this managed by outpatient provider and continue her current course. This was strongly discouraged given the patient's numerous risk factors associated with CDC guidelines, but the patient defers this to outpatient setting. The patient has been on room air and has oxygenated above 93%. As mentioned, the patient was able to converse and ambulate and fully complete sentences and is ready for discharge. DISCHARGE PLANNING: The patient will follow up primary care provider within 1 week for hospital followup. Time spent on this discharge including assessment and plan, physical examination, and patient education is 25 minutes. DICTATING PHYSICIAN: DIONE GANN NP [id number] PHY#: [id number] ID: [id number] JOB#: [id number] ACCT: [id number] cc:DEEPA YORK M.D., MICHAEL NP >
[2017-03-14 09:51] VITALS: BP 139/65
[2017-03-14] MEDS ORDERED: PREDNISONE 20 MG TABLET PO SCH (10:00)
== END 2017-03-14 10:28 | disposition home or self-care (01) | DRG 202 ==
LOC: ER 16:54 → UNDOADMIN 03-13 02:01 → EH 03-13 02:01 → 3S 03-13 04:53
PROVIDERS: ADMIT Family Medicine; ATTEND Family Medicine
PROC: 3E0F73Z Introduction of Anti-inflammatory into Respiratory Tract, Via Natural or Artificial Opening (ICD-10-PCS; principal; 2017-03-13)
DX: J45.901 Unspecified asthma with (acute) exacerbation (principal); J96.01 Acute respiratory failure with hypoxia; K21.9 Gastro-esophageal reflux disease without esophagitis; M32.9 Systemic lupus erythematosus, unspecified; F32.9 Major depressive disorder, single episode, unspecified; I25.10 Atherosclerotic heart disease of native coronary artery without angina pectoris; I10 Essential (primary) hypertension; Z79.891 Long term (current) use of opiate analgesic; Z79.899 Other long term (current) drug therapy; F41.1 Generalized anxiety disorder; I25.2 Old myocardial infarction; Z90.49 Acquired absence of other specified parts of digestive tract; Z90.710 Acquired absence of both cervix and uterus; Z87.891 Personal history of nicotine dependence; Z79.890 Hormone replacement therapy; Z87.442 Personal history of urinary calculi
CPT/HCPCS: 36415; 36600; 71020; 80048; 80053; 81001; 82550; 82553; 82803; 82962; 83735; 84484; 85025; 85379; 87040; 87070; 87077; 87186; 87205; 94640; 94799; 96365; 96375; 99285; J0456; J0692; J1650; J1815; J2060; J2920; J2930; J3475; J3490; J7030; J7060; J7512; J7620; S0119

== ENCOUNTER → 2019-01-16 | Outpatient (CLI) | payer MEDICARE ==
--- NOTE | 2019-01-16 10:46 | RADIOLOGY REPORT (SQ) ---
EXAM DESCRIPTION: MRI RT UPPER JOINT COMBO COMPLETED DATE/TIME: 01/16/2019 10:08 am REASON FOR STUDY: GANGLION , RIGHT WRIST (M67.431) M67.431 GANGLION, RIGHT WRIST COMPARISON: None. TECHNIQUE: Multiplanar imaging of the right wrist to include T1-weighted, postcontrast T1-weighted, and T2-weighted images. CONTRAST TYPE AND DOSE: 10 mL Dotarem. RENAL FUNCTION: Not indicated. ACR Type II contrast agent associated with few, if any, unconfounded cases of NSF LIMITATIONS: None. FINDINGS: BONE MARROW: Marrow edema in the trapezium and thumb base with associated joint space narr owing and osteophytes. Regional mild soft tissue edema and enhancement but no significant ganglion o r other mass detected. SOFT TISSUES: As above. No evidence of tenosynovitis. Carpal tunnel looks unremarkable. OTHER: No other significant finding. IMPRESSION: 1. No significant mass. Thumb base DJD. TECHNICAL DOCUMENTATION: JOB ID: [id number] [employer]- All Rights Reserved Reading location - IP/workstation name: [email or web address]
== END ==
LOC: RAD 09:16
PROVIDERS: ATTEND Physician Assistant
DX: M67.431 Ganglion, right wrist (principal); M19.031 Primary osteoarthritis, right wrist
CPT/HCPCS: 82565; 73223; A9576